=== PATIENT | male | born 1955 | race African-American/Black ===

== ENCOUNTER 2018-07-17 03:36 | Emergency (ER) | payer SELFPAY ==
[~2018-07-17] VITALS: Ht 170.2 cm; Wt 77.1 kg
[2018-07-17 03:40] VITALS: BP 123/77
[2018-07-17] MEDS ORDERED: LIDOCAINE 1% PF 30 ML VIAL. INJ ONE (04:45)
[2018-07-17] MEDS ORDERED: DIPHTH,PERTUSS(ACELL),TET TOX 0.5 ML DISP.SYRIN. VAX IM ONE (05:45)
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
== END 2018-07-17 05:56 | disposition home or self-care (01) ==
LOC: ER 03:36
DX: S01.21XA Laceration without foreign body of nose, initial encounter (principal); S01.412A Laceration without foreign body of left cheek and temporomandibular area, initial encounter; F10.20 Alcohol dependence, uncomplicated; Y90.9 Presence of alcohol in blood, level not specified; Y08.89XA Assault by other specified means, initial encounter; Y93.89 Activity, other specified; Y92.89 Other specified places as the place of occurrence of the external cause; Y99.8 Other external cause status
CPT/HCPCS: 12011; 12013; 90471; 90715; 99283

== ENCOUNTER 2018-07-21 08:21 | Emergency (ER) | payer SELFPAY ==
[~2018-07-21] VITALS: Ht 165.1 cm; Wt 77.1 kg
[2018-07-21 08:24] VITALS: BP 132/80
--- NOTE | 2018-07-21 08:37 | PHYS DOC ---
Past Medical History Past Medical History: No Pertinent History Past Surgical History: No Surgical History Alcohol Use: Heavy Drug Use: None Adult General Chief Complaint Chief Complaint: SUTURE/STAPLE REMOVAL HPI HPI Patient is a 63 year old male who presents with left side of nose and left upper cheek suture removal. Review of Systems Review of Systems Constitutional: Denies fever or chills [] Eyes: Denies change in visual acuity, redness, or eye pain [] HENT: Denies nasal congestion or sore throat [] Respiratory: Denies cough or shortness of breath [] Cardiovascular: No additional information not addressed in HPI [] GI: Denies abdominal pain, nausea, vomiting, bloody stools or diarrhea [] : Denies dysuria or hematuria [] Musculoskeletal: Denies back pain or joint pain [] Integument: Denies rash or skin lesions. Left side of nose sutures and left upper cheek sutures. [] Neurologic: Denies headache, focal weakness or sensory changes [] Endocrine: Denies polyuria or polydipsia [] All other systems were reviewed and found to be within normal limits, except as documented in this note. Allergies Allergies Allergies Coded Allergies Type Severity Reaction Last Updated Verified No Known Drug Allergies 11/21/15 No Physical Exam Physical Exam Constitutional: Well developed, well nourished, no acute distress, non-toxic appearance. [] HENT: Normocephalic, atraumatic, bilateral external ears normal, oropharynx moist, no oral exudates, nose normal. [] Eyes: PERRLA, EOMI, conjunctiva normal, no discharge. [] Neck: Normal range of motion, no tenderness, supple, no stridor. [] Cardiovascular:Heart rate regular rhythm, no murmur [] Lungs & Thorax: Bilateral breath sounds clear to auscultation [] Abdomen: Bowel sounds normal, soft, no tenderness, no masses, no pulsatile masses. [] Skin: Warm, dry, no erythema, no rash. 2, left nose and upper left cheek, lacerations have edges approximated and healed together. Skin appears to have started to grow over laceration sites. [] Back: No tenderness, no CVA tenderness. [] Extremities: No tenderness, no cyanosis, no clubbing, ROM intact, no edema. [] Neurologic: Alert and oriented X 3, normal motor function, normal sensory function, no focal deficits noted. [] Psychologic: Affect normal, judgement normal, mood normal. [] Current Patient Data Vital Signs Vital Signs Date Time Temp Pulse Resp B/P (MAP) Pulse Ox O2 Delivery O2 Flow Rate FiO2 07/21/18 08:24 98.8 92 18 132/80 (97) 98 Room Air 98.8 EKG EKG [] Radiology/Procedures Radiology/Procedures [] Course & Med Decision Making Course & Med Decision Making Patient is a 63 year old male who presents with left side of nose and left upper cheek suture removal. Both lacerations have approximated edges and are healed together without redness, edema, or drainage. The skin looks to have started to heal over the sutures in patient nose. The nurse removed the sutures and laceration edges are still approximated in both lacerations. A large nickel sized blood clot is removed from patients nose. Skin adhesive and steri strips is applied to the nose laceration. Alisha: 1 difficult stitches are removed it distally there was adequate wound approximation however we did then apply skin adhesive and Steri-Strips as well given the location of the laceration [] Dragon Disclaimer Dragon Disclaimer This electronic medical record was generated, in whole or in part, using a voice recognition dictation system. Departure Departure Impression: Primary Impression: Visit for suture removal Disposition: 01 HOME, SELF-CARE Condition: STABLE Referrals: NO PCP (PCP) Patient Instructions: Laceration, Old, Not Sutured, Sutured Wound Care Additional Instructions: Return for any signs of infection as discussed. BESSIE CENTENO APRN Jul 21, 2018 08:37 CHARISSA HOLLAND MD Jul 21, 2018 10:15
== END 2018-07-21 08:58 | disposition home or self-care (01) ==
LOC: ER 08:21
DX: S01.412D Laceration without foreign body of left cheek and temporomandibular area, subsequent encounter (principal); F10.20 Alcohol dependence, uncomplicated; Y90.9 Presence of alcohol in blood, level not specified; X58.XXXD Exposure to other specified factors, subsequent encounter
CPT/HCPCS: 12011; 99283